=== PATIENT | male | born 1980 | race Caucasian/White ===

== ENCOUNTER 2017-12-10 00:20 | Emergency (ER) | payer BC ==
--- NOTE | 2017-12-10 00:38 | EDM.PDOC ---
ED HPI GENERAL MEDICAL PROBLEM - General Chief Complaint: ENT Problem Stated Complaint: PEN CAP STUCK IN RIGHT EAR Time Seen by Provider: 12/10/17 00:30 - History of Present Illness INITIAL COMMENTS - FREE TEXT/NARRATIVE: HISTORY AND PHYSICAL: History of present illness: The patient is a 37-year-old male who presents with complaints of a piece of plastic from a pen that is in his right ear that he not stuck there as he was using the pen to scratch his ear. He says his ear is been very itchy and he has been on medication for ear infection. He otherwise is healthy and has no systemic complaints. This event occurred about 20 minutes ago. Feel like his hearing is diminished or there is any whooshing in that right ear. Review of systems: As per history of present illness and below otherwise all systems reviewed and negative. Past medical history: As per history of present illness and as reviewed below otherwise noncontributory. Surgical history: As per history of present illness and as reviewed below otherwise noncontributory. Social history: No reported history of drug or alcohol abuse. Family history: As per history of present illness and as reviewed below otherwise noncontributory. Physical exam: General: Well-developed well-nourished man who is nontoxic and vital signs are noted by me HEENT: Atraumatic, normocephalic, pupils reactive, negative for conjunctival pallor or scleral icterus, mucous membranes moist, throat clear, neck supple, nontender, trachea midline. TM on the left is within normal limits with a good light reflex and no external canal debris or swelling. The right TM is unable to be seen due to a piece of white plastic that is in the external canal. Please see below for reevaluation after foreign body removal Lungs: Clear to auscultation, breath sounds equal bilaterally, chest nontender. Heart: S1S2, regular rate and rhythm no overt murmurs Abdomen: Soft, nondistended, nontender. NABS Pelvis: Deferred Genitourinary: Deferred. Rectal: Deferred. Extremities: Atraumatic, full range of motion without defects or deficits Neurovascular unremarkable. Neuro: Awake, alert, oriented. Cranial nerves II through XII unremarkable. Cerebellum unremarkable. Motor and sensory unremarkable throughout. Exam nonfocal. Diagnostics: none Therapeutics: After the procedure was explained to the patient the patient was positioned and using an alligator forcep the piece of plastic was easily removed without complication. The patient tolerated the procedure well. The ear was reevaluated after removal of the foreign body and the external canal is within normal limits and there is no evidence of any trauma or bleeding. The TM on the right is very beefy and erythematous throughout the majority of the perimeter but at approximately 6 to 9:00 there is an area of yellowish debris which seems adherent to the TM. There is no gross perforation seen. The patient and I discussed the fact that he had been on antibiotics but only got 4 days instead of 10 days and this was about a week ago. He is concerned that he did not treat the infection completely. He has seen the ENT specialist at [facility] in the past and I recommended that he can reconnect with Dr. Polk for reevaluation and care. I will give him a new prescription of Augmentin as well as Cipro ear gtts Please note that after I discussed prescribing eardrops to the patient he tells me that he is leaving for [place] and 3 hours and the eardrops that I was planning on giving him are not in [facility]. I will give him the Augmentin and have him follow-up Impression: Foreign body to right ear, otitis media right Definitive disposition and diagnosis as appropriate pending reevaluation and review of above. - Related Data Allergies Allergy/AdvReac Type Severity Reaction Status Date / Time No Known Allergies Allergy Verified 12/10/17 00:30 Home Meds: Home Meds Lisinopril 1 tab PO DAILY 12/10/17 [History] ED ROS GENERAL - Review of Systems Review Of Systems: ROS reveals no pertinent complaints other than HPI. ED EXAM, GENERAL - Physical Exam Exam: See Below (See dictation) Course - Vital Signs Last Recorded V/S: Last Vital Signs Temp 36.2 C 12/10/17 00:32 Pulse 82 12/10/17 00:32 Resp 18 12/10/17 00:32 BP 144/87 H 12/10/17 00:32 Pulse Ox 96 12/10/17 00:32 Departure - Departure Time of Disposition: 00:47 Disposition: Home, Self-Care 01 Condition: Good Clinical Impression: Foreign body in ear Qualifiers: Encounter type: initial encounter Laterality: right Qualified Code(s): T16.1XXA - Foreign body in right ear, initial encounter Otitis media Qualifiers: Otitis media type: unspecified Chronicity: subacute Qualified Code(s): H66.90 - Otitis media, unspecified, unspecified ear - Discharge Information Referrals: PCP,None [Primary Care Provider] - Forms: ED Department Discharge Additional Instructions: The following information is given to patients seen in the emergency department who are being discharged to home. This information is to outline your options for follow-up care. We provide all patients seen in our emergency department with a follow-up referral. The need for follow-up, as well as the timing and circumstances, are variable depending upon the specifics of your emergency department visit. If you don't have a primary care physician on staff, we will provide you with a referral. We always advise you to contact your personal physician following an emergency department visit to inform them of the circumstance of the visit and for follow-up with them and/or the need for any referrals to a consulting specialist. The emergency department will also refer you to a specialist when appropriate. This referral assures that you have the opportunity for followup care with a specialist. All of these measure are taken in an effort to provide you with optimal care, which includes your followup. Under all circumstances we always encourage you to contact your private physician who remains a resource for coordinating your care. When calling for followup care, please make the office aware that this follow-up is from your recent emergency room visit. If for any reason you are refused follow-up, please contact the [facility] emergency department at and ask to speak to the emergency department charge nurse. [facility] Primary care- Internal Medicine and Family [address] [address] [address] nothing in the right ear for the next 5 days including any liquids Q -tips or fingers. Please take Augmentin as prescribed to you from [facility] and please follow-up with one of our providers in the clinic and/or your provider at [facility] in [place] as well as the ENT specialist that you have seen in the past Dr. Polk. Return to ER as needed and as discussed
== END 2017-12-10 00:55 | disposition home or self-care (01) ==
LOC: MW.ED 00:20
DX: T16.1XXA Foreign body in right ear, initial encounter (principal); H66.91 Otitis media, unspecified, right ear
CPT/HCPCS: 99282

== ENCOUNTER 2018-09-16 11:40 | Emergency (ER) | payer BC ==
--- NOTE | 2018-09-16 12:17 | EDM.PDOC ---
ED HPI GENERAL MEDICAL PROBLEM - General Chief Complaint: Respiratory Problem Stated Complaint: FLU LIKE SYMPTOMS Time Seen by Provider: 09/16/18 12:11 - History of Present Illness INITIAL COMMENTS - FREE TEXT/NARRATIVE: HISTORY AND PHYSICAL: History of present illness: Patient 37-year-old white male with history of hypertension who presents with a concern of crusty injected eyes bilaterally sore throat and cough no shortness of breath vomiting fever or other concern Review of systems: As per history of present illness and below otherwise all systems reviewed and negative. Past medical history: As per history of present illness and as reviewed below otherwise noncontributory. Surgical history: As per history of present illness and as reviewed below otherwise noncontributory. Social history: No reported history of drug or alcohol abuse. Family history: As per history of present illness and as reviewed below otherwise noncontributory. Physical exam: HEENT: Atraumatic, normocephalic, pupils reactive, injected conjunctiva bilaterally negative for conjunctival pallor or scleral icterus, mucous membranes moist, throat injected, neck supple, nontender, trachea midline. Lungs: Clear to auscultation, breath sounds equal bilaterally, chest nontender. Heart: S1S2, regular, negative for clicks, rubs, or JVD. Abdomen: Soft, nondistended, nontender. Negative for masses or hepatosplenomegaly. Negative for costovertebral tenderness. Pelvis: Stable nontender. Genitourinary: Deferred. Rectal: Deferred. Extremities: Atraumatic, negative for cords or calf pain. Neurovascular unremarkable. Neuro: Awake, alert, oriented. Cranial nerves II through XII unremarkable. Cerebellum unremarkable. Motor and sensory unremarkable throughout. Exam nonfocal. Diagnostics: None Therapeutics: None Impression: #1 conjunctivitis #2 pharyngitis #3 pneumonitis Definitive disposition and diagnosis as appropriate pending reevaluation and review of above. generalized Pain Score (Numeric/FACES): 6 - Related Data Allergies Allergy/AdvReac Type Severity Reaction Status Date / Time No Known Allergies Allergy Verified 09/16/18 12:13 Home Meds: Home Meds Lisinopril 1 tab PO DAILY 12/10/17 [History] Past Medical History Cardiovascular History: Reports: Hypertension - Infectious Disease History Infectious Disease History: Reports: Chicken Pox Social & Family History - Family History Family Medical History: Noncontributory - Caffeine Use Caffeine Use: Reports: Coffee ED ROS GENERAL - Review of Systems Review Of Systems: ROS reveals no pertinent complaints other than HPI. ED EXAM, GENERAL - Physical Exam Exam: See Below (See dictation) Course - Vital Signs Last Recorded V/S: Last Vital Signs Temp 36.7 C 09/16/18 12:11 Pulse 87 09/16/18 12:11 Resp 18 09/16/18 12:11 BP 140/92 H 09/16/18 12:11 Pulse Ox 95 09/16/18 12:11 Departure - Departure Time of Disposition: 12:16 Disposition: Home, Self-Care 01 Condition: Good Clinical Impression: Conjunctivitis, Pharyngitis, Pneumonitis - Discharge Information Referrals: PCP,Not In Area [Primary Care Provider] - Additional Instructions: The following information is given to patients seen in the emergency department who are being discharged to home. This information is to outline your options for follow-up care. We provide all patients seen in our emergency department with a follow-up referral. The need for follow-up, as well as the timing and circumstances, are variable depending upon the specifics of your emergency department visit. If you don't have a primary care physician on staff, we will provide you with a referral. We always advise you to contact your personal physician following an emergency department visit to inform them of the circumstance of the visit and for follow-up with them and/or the need for any referrals to a consulting specialist. The emergency department will also refer you to a specialist when appropriate. This referral assures that you have the opportunity for followup care with a specialist. All of these measure are taken in an effort to provide you with optimal care, which includes your followup. Under all circumstances we always encourage you to contact your private physician who remains a resource for coordinating your care. When calling for followup care, please make the office aware that this follow-up is from your recent emergency room visit. If for any reason you are refused follow-up, please contact the [facility] emergency department at and asked to speak to the emergency department charge nurse. [employer] Augmentin albuterol as prescribed follow-up primary medical doctor as needed as discussed return as needed as discussed
== END 2018-09-16 12:25 | disposition home or self-care (01) ==
LOC: MW.ED 11:40
DX: J18.9 Pneumonia, unspecified organism (principal); J02.9 Acute pharyngitis, unspecified; H10.9 Unspecified conjunctivitis; I10 Essential (primary) hypertension; Z79.899 Other long term (current) drug therapy
CPT/HCPCS: 99282

== ENCOUNTER 2021-05-22 16:22 | Emergency (ER) | payer BC ==
[2021-05-22] MEDS: Bacitracin Oint 1 GM U/D Packet TOP ONE (16:58)
== END 2021-05-22 17:19 | disposition home or self-care (01) ==
LOC: MW.ED 16:22
DX: S61.012A Laceration without foreign body of left thumb without damage to nail, initial encounter (principal); I10 Essential (primary) hypertension; Z79.899 Other long term (current) drug therapy; W26.0XXA Contact with knife, initial encounter; Y92.009 Unspecified place in unspecified non-institutional (private) residence as the place of occurrence of the external cause
CPT/HCPCS: 99282; 99283

== ENCOUNTER 2022-06-05 19:34 | Emergency (ER) | payer BC | END 2022-06-05 20:10 | disposition home or self-care (01) | LOC: MW.ED 19:34 | DX: H60.91 Unspecified otitis externa, right ear (principal); I10 Essential (primary) hypertension; Z79.899 Other long term (current) drug therapy | CPT/HCPCS: 99282; 99283 ==